=== PATIENT | male | born 1975 | race Caucasian/White ===

== ENCOUNTER 2016-12-25 16:35 | Emergency (ER) | payer OTHER ==
--- NOTE | 2016-12-25 16:58 | ER Document Report ---
ED Medical Screen (RME) - General Stated Complaint: OPEN WOUND Time seen by provider: 16:55 Mode of Arrival: Ambulatory Information source: Patient - HPI Patient complains to provider of: LACERATION LEFT INDEX FINGER Onset: Just prior to arrival Onset/Duration: Sudden Context: CUT FINGER WITH SAW. STATES TETANUS UTD Quality of pain: Throbbing Severity: Moderate Pain Level: 4 Associated Symptoms: None Exacerbated by: Movement Relieved by: Denies Similar symptoms previously: No Recently seen / treated by doctor: No Notes: 12/25/16 16:57 PAIN DENIES WANTING PAIN MEDS AT THIS TIME. - Related Data Smoking: Cigarettes Frequency of alcohol use: Rare Drug Abuse: None Allergies/Adverse Reactions: No Known Allergies Allergy (Verified 12/25/16 16:57) Physical Exam - Vital signs Vitals: Temp Pulse Resp BP Pulse Ox 98.7 F 76 16 106/58 L 96 12/25/16 16:43 12/25/16 16:43 12/25/16 16:43 12/25/16 16:43 12/25/16 16:43 Course - Vital Signs Vital signs: Temp Pulse Resp BP Pulse Ox 98.7 F 76 16 106/58 L 96 12/25/16 16:43 12/25/16 16:43 12/25/16 16:43 12/25/16 16:43 12/25/16 16:43
--- NOTE | 2016-12-25 19:45 | ER Document Report ---
ED General - General Chief Complaint: Finger Injury Stated Complaint: OPEN WOUND Mode of Arrival: Ambulatory Notes: Patient is a 41-year-old male without past medical history who presents after accidentally cutting his left index finger with a saw. States that this occurred as he was cutting wood to place on a hardwood floor. Describes a constant, throbbing, severe pain. Touching the area worsens the pain. Nothing improves the pain. No history of prior injury similar to this. His tetanus is already current. He denies any additional injury. He has not seen his primary care physician regarding today's concern. TRAVEL OUTSIDE OF THE [place] IN LAST 30 DAYS: No - Related Data Allergies/Adverse Reactions: No Known Allergies Allergy (Verified 12/25/16 16:57) Past Medical History - General Information source: Patient - Social History Smoking Status: Current Every Day Smoker Chew tobacco use (# tins/day): No Frequency of alcohol use: Rare Drug Abuse: None Family History: Reviewed & Not Pertinent Patient has suicidal ideation: No Patient has homicidal ideation: No Renal/ Medical History: Denies: Hx Peritoneal Dialysis Review of Systems - Review of Systems Notes: Constitutional: Negative for fever. Eyes: Negative for visual changes. ENT: Negative for facial injury Cardiovascular: Negative for chest injury. Respiratory: Negative for shortness of breath. Gastrointestinal: Negative for abdominal injury. Genitourinary: Negative for genital injury Musculoskeletal: Positive for left finger injury Skin: Negative for laceration/abrasions. Neurological: Negative for head injury. Physical Exam - Vital signs Vitals: Temp Pulse Resp BP Pulse Ox 98.7 F 76 16 106/58 L 96 12/25/16 16:43 12/25/16 16:43 12/25/16 16:43 12/25/16 16:43 12/25/16 16:43 Interpretation: Normal Notes: PHYSICAL EXAMINATION: GENERAL: Well-appearing, well-nourished and in no acute distress. HEAD: Atraumatic, normocephalic. EYES: sclera anicteric, conjunctiva are normal. ENT: Moist mucous membranes. NECK: Normal range of motion LUNGS: Normal work of breathing HEART: 2+ radial pulses bilaterally EXTREMITIES: Patient has a macerated laceration to the distal aspect of the left index finger running along the volar pad toward the radial most aspect of the distal tip. No involvement of the DIP or PIP. Full flexion and extension both the DIP, PIP and MCP. No Nail violation. NEUROLOGICAL: No focal neurological deficits. Moves all extremities spontaneously and on command. PSYCH: Normal mood, normal affect. SKIN: Warm, Dry, normal turgor, see above Course - Re-evaluation Re-evalutation: 12/25/16 19:43 She presents with a laceration of the left border pad of the index finger sustained a saw. No additional injuries. Flexion and extension intact at the PIP and DIP. No additional injury. Tetanus is already up to date. A digital block was performed in the laceration was repaired after exploration of the wound without identification of a tendon laceration.At this time will discharge with return precautions and follow-up recommendations. Verbal discharge instructions given a the bedside and opportunity for questions given. Medication warnings reviewed. Patient is in agreement with this plan and has verbalized understanding of return precautions and the need for primary care follow-up in the next 24-72 hours. - Vital Signs Vital signs: Temp Pulse Resp BP Pulse Ox 98.9 F 70 16 110/60 99 12/25/16 22:01 12/25/16 22:01 12/25/16 22:01 12/25/16 22:01 12/25/16 22:01 Procedures - Laceration/Wound Repair Left 2nd digit Time completed: 21:36 Wound length (cm): 4 Wound's Depth, Shape: Irregular, Contused tissue Laceration pre-procedure: Sterile PPE donned Anesthetic type: 1% Lidocaine Volume Anesthetic (mLs): 3 Wound explored: Contaminated Irrigated w/ Saline (mLs): 1,000 Wound Debrided: Extensive Wound Repaired With: Sutures Suture Size/Type: 5:0, Prolene Number of Sutures: 10 Layer Closure?: No Post-procedure wound care: Sterile dressing applied, Splint applied Post-procedure NV exam normal: Yes Complications: No Notes: 12/25/16 21:37 Complex laceration repair with extensive maceration of tissue and jagged wound edges. There are multiple areas of missing tissue and multiple areas that required extensive wound debridement. This very difficult to approximate the wound as the macerated tissue for with attempts at applying suture material and bringing the tissue together. 10 stitches were placed to roughly approximate the tissue. Discharge - Discharge Clinical Impression: Laceration of left index finger Condition: Good Disposition: HOME, SELF-CARE Additional Instructions: Please return to your primary doctor, the ED, or an urgent care in 7 days for suture removal. You will need to follow-up with our hand surgeon given the degree of this wound. Please call to make an appointment as soon as possible. Return immediately if you develop spreading redness around the wound, pus from the wound, worsening pain, or a fever of >100.4. Keep the area clean and dry. Wash gently with soap and water twice daily and cover with antibiotic ointment. Referrals: IBRAHIMA MATOS DO [ACTIVE STAFF] - Follow up in 1 week
[2016-12-25] MEDS ORDERED: LIDOCAINE 1% INJ-PF (10 MG/ML) 30 ML SDV ONE (19:47)
[2016-12-25] MEDS ORDERED: HYDROCODONE/ACETAMINOPHEN 5-325 MG 6 TAB/DSPK PO PRN (21:39)
[2016-12-25 22:02] VITALS: BP 110/60
== END 2016-12-25 22:03 | disposition home or self-care (01) ==
LOC: ER 16:35
PROC: 0HQGXZZ Repair Left Hand Skin, External Approach (ICD-10-PCS; principal; 2016-12-25)
DX: S61.211A Laceration without foreign body of left index finger without damage to nail, initial encounter (principal); W29.8XXA Contact with other powered hand tools and household machinery, initial encounter; Y93.89 Activity, other specified; F17.200 Nicotine dependence, unspecified, uncomplicated
CPT/HCPCS: 99283